=== PATIENT | female | born 1965 | race Caucasian/White ===

== ENCOUNTER → 2024-01-04 14:24 | Outpatient (REF) | payer BC, SELFPAY ==
[2024-01-25 20:04] LABS: HPV, High Risk Not Detected; HPV, High Risk Source Cervical
== END ==
LOC: CPAP 14:24
PROVIDERS: ATTENDING PHYSICIAN Obstetrics & Gynecology Gynecology
DX: Z01.419 Encounter for gynecological examination (general) (routine) without abnormal findings (principal)
CPT/HCPCS: 87624; G0123

== ENCOUNTER → 2024-06-13 14:48 | Outpatient (REF) | payer BC, SELFPAY ==
[2024-06-13 16:24] LABS: TSH Reflex To Free T4 0.19 uIU/ml (0.47-4.68)
[2024-06-13 16:53] LABS: Free T4 1.32 ng/dl (0.78-2.19)
== END ==
LOC: RAD 14:48
PROVIDERS: ATTENDING PHYSICIAN Internal Medicine Endocrinology, Diabetes & Metabolism; FAMILY PHYSICIAN Physician Assistant
DX: E04.2 Nontoxic multinodular goiter (principal); E03.9 Hypothyroidism, unspecified
CPT/HCPCS: 36415; 84439; 84443

== ENCOUNTER → 2024-09-12 14:40 | Outpatient (REF) | payer BC, SELFPAY ==
[2024-09-12 16:25] LABS: Urine Albumin Negative (Neg - Trace); Urine Bilirubin Negative (Negative); Urine Character Clear (Clear); Urine Color Yellow; Urine Glucose Negative (Negative); Urine Ketone Negative (Negative); Urine Leukocyte Negative (Negative); Urine Nitrite Negative (Negative); Urine Occult Blood Trace (Negative); Urine Urobilinogen Negative (Neg - 1+); Urine pH 6.5 (5.0-9.0)
[2024-09-12 16:36] LABS: % Basophils 0.8 % (0-2); % Eosinophils 7.2 % (0-6); % Immature Granulocytes 0.2 % (0-0.5); % Lymphocytes 30.9 % (20.5-51.1); % Monocytes 6.7 % (1.7-9.3); % Neutrophils 54.2 % (42.2-75.2); Absolute Basophils 0.1 10^3/uL (0-0.2); Absolute Eosinophils 0.5 10^3/uL (0-0.7); Absolute Monocytes 0.4 10^3/uL (0.1-0.6); Absolute Neutrophils 3.6 10^3/uL (1.4-6.5); Hemoglobin 13.6 g/dL (12.0-16.0); Mean Corp Hgb Conc. 34.9 g/dL (33.0-37.0); Mean Corpuscular Hgb 30.9 pg (27.0-31.0); Mean Corpuscular Volume 88.6 fL (81.0-99.0); Mean Platelet Volume 10.1 fL (7.4-10.4); Nucleated Red Blood Cells % 0 %; Platelet Count 235 10^3/uL (130-400); Red Cell Dist. Width 12.9 % (11.5-14.5); White Blood Cell Count 6.5 10^3/uL (4.8-10.8)
[2024-09-12 16:39] LABS: Urine Bacteria Few (Negative); Urine Red Blood Cell 0-2 /HPF (0-2); Urine Squamous Cell 0-2 /LPF (Few); Urine Urothelial Cell 0-2 /LPF (FEW); Urine White Cell 0-2 /HPF (0-5)
[2024-09-12 17:07] LABS: ALT (SGPT) 26 U/L (0-35); AST (SGOT) 34 U/L (14-36); Albumin 4.4 g/dl (3.5-5.0); Alkaline Phosphatase 47 U/L (38-126); Blood Urea Nitrogen 12 mg/dl (7-17); Calcium 9.5 mg/dl (8.4-10.2); Carbon Dioxide 26 mmol/L (22-30); Chloride 100 mmol/L (98-107); Glucose 87 mg/dl (70-99); HDL Cholesterol 66 mg/dl; LDL Cholesterol, Calculated 135 mg/dl; Potassium 4.5 mmol/L (3.5-5.1); Sodium 139 mmol/L (135-145); Total Bilirubin 0.4 mg/dl (0.2-1.3); Total Cholesterol 217 mg/dl (50-199); Total Protein 7.3 g/dl (6.3-8.2); Triglyceride 82 mg/dl (10-149); Very Low Density Lipoprotein 16 mg/dl (0-30); eGFR > 60.00
[2024-09-12 17:11] LABS: Free T4 0.94 ng/dl (0.78-2.19)
[2024-09-12 17:25] LABS: TSH 9.33 uIU/ml (0.47-4.68)
[2024-09-12 17:28] LABS: Microalbumin, Random Urine <0.6 mg/dl (0.6-1.7)
[2024-09-13 10:56] LABS: Glycohemoglobin (HgbA1c) 5.4 % (4.0-5.6)
== END ==
LOC: REG 14:40
PROVIDERS: ATTENDING PHYSICIAN Physician Assistant
DX: Z00.00 Encounter for general adult medical examination without abnormal findings (principal)
CPT/HCPCS: 36415; 80053; 80061; 81003; 81015; 82043; 82570; 83036; 84439; 84443; 85025

== ENCOUNTER → 2025-03-22 14:43 | Outpatient (REF) | payer BC, SELFPAY ==
[2025-03-22 16:28] LABS: TSH Reflex To Free T4 1.62 uIU/ml (0.47-4.68)
== END ==
LOC: REG 14:43
PROVIDERS: ATTENDING PHYSICIAN Internal Medicine Endocrinology, Diabetes & Metabolism
DX: E03.9 Hypothyroidism, unspecified (principal)
CPT/HCPCS: 36415; 84443

== ENCOUNTER → 2025-04-06 14:42 | Outpatient (REF) | payer BC, SELFPAY ==
[2025-04-06 15:26] LABS: Blood Urea Nitrogen 24 mg/dl (7-17); Carbon Dioxide 29 mmol/L (22-30); Chloride 105 mmol/L (98-107); Glucose 101 mg/dl (70-99); Potassium 4.3 mmol/L (3.5-5.1); Sodium 140 mmol/L (135-145); eGFR > 60.00
[2025-04-07 08:28] LABS: Glycohemoglobin (HgbA1c) 5.4 % (4.0-5.6)
== END ==
LOC: REG 14:42
PROVIDERS: ATTENDING PHYSICIAN Physician Assistant
DX: R73.01 Impaired fasting glucose (principal)
CPT/HCPCS: 36415; 80048; 83036

== ENCOUNTER → 2025-05-07 14:23 | Outpatient (REF) | payer BC, SELFPAY | LOC: WDC 14:23 | PROVIDERS: ATTENDING PHYSICIAN Obstetrics & Gynecology Gynecology | DX: Z12.31 Encounter for screening mammogram for malignant neoplasm of breast (principal) | CPT/HCPCS: 77063; 77067 ==

== ENCOUNTER → 2025-06-15 13:48 | Outpatient (REF) | payer BC, SELFPAY | LOC: RAD 13:48 | PROVIDERS: ATTENDING PHYSICIAN Internal Medicine Endocrinology, Diabetes & Metabolism; FAMILY PHYSICIAN Physician Assistant | DX: E03.9 Hypothyroidism, unspecified (principal) | CPT/HCPCS: 76536 ==

== ENCOUNTER → 2025-08-31 14:46 | Outpatient (REF) | payer BC, SELFPAY | LOC: RAD 14:46 | PROVIDERS: ATTENDING PHYSICIAN Psychiatry & Neurology Neurology; FAMILY PHYSICIAN Physician Assistant | DX: R20.2 Paresthesia of skin (principal) | CPT/HCPCS: 72125 ==

== ENCOUNTER → 2025-09-21 14:42 | Outpatient (REF) | payer BC, SELFPAY ==
[2025-09-21 16:00] LABS: Hematocrit 40.9 % (37.0-47.0); Hemoglobin 13.4 g/dL (12.0-16.0); Mean Corp Hgb Conc. 32.8 g/dL (33.0-37.0); Mean Corpuscular Volume 91.9 fL (81.0-99.0); Nucleated Red Blood Cells % 0 %; Platelet Count 263 10^3/uL (130-400); Red Cell Dist. Width 13.0 % (11.5-14.5); Urine Character Clear (Clear)
[2025-09-21 16:18] LABS: Urine White Cell 0-2 /HPF (0-5)
[2025-09-21 16:21] LABS: ALT (SGPT) 29 U/L (0-35); AST (SGOT) 28 U/L (14-36); Albumin 4.4 g/dl (3.5-5.0); Alkaline Phosphatase 55 U/L (38-126); Blood Urea Nitrogen 21 mg/dl (7-17); Calcium 9.4 mg/dl (8.4-10.2); Carbon Dioxide 28 mmol/L (22-30); Chloride 106 mmol/L (98-107); Glucose 101 mg/dl (70-99); HDL Cholesterol 61 mg/dl; LDL Cholesterol, Calculated 137 mg/dl; Potassium 4.9 mmol/L (3.5-5.1); Sodium 140 mmol/L (135-145); Total Protein 7.3 g/dl (6.3-8.2); Very Low Density Lipoprotein 13 mg/dl (0-30); eGFR > 60.00
[2025-09-21 16:22] LABS: Microalb - Urine Creatinine 157.700 mg/dl
[2025-09-21 16:27] LABS: Microalbumin, Random Urine 0.9 mg/dl (0.6-1.7)
[2025-09-21 16:51] LABS: TSH 1.76 uIU/ml (0.47-4.68)
[2025-09-22 08:42] LABS: Glycohemoglobin (HgbA1c) 5.5 % (4.0-5.9)
== END ==
LOC: REG 14:42
PROVIDERS: ATTENDING PHYSICIAN Physician Assistant
DX: Z00.00 Encounter for general adult medical examination without abnormal findings (principal)
CPT/HCPCS: 36415; 80053; 80061; 81003; 81015; 82043; 82570; 83036; 84436; 84443; 85025